=== PATIENT | female | born 1990 | race Caucasian/White ===

== ENCOUNTER 2016-11-09 21:59 | Emergency (ER) | payer BC, OTHER ==
[~2016-11-09] VITALS: Ht 172.7 cm; Wt 59.8 kg
[~2016-11-09 21:59] MED LIST: ALBUAER2 INH; CLTP PO; MULT-506 PO
[2016-11-09 22:03] VITALS: Ht 172.7 cm; Wt 59.8 kg
[2016-11-09] MEDS ORDERED: DiphenhydrAMINE HCL 50 MG/ML VIAL IV STA (23:08)
[2016-11-09] MEDS ORDERED: ONDANSETRON INJ 2 MG/ML 2 ML VIAL IV STA (23:08)
[2016-11-09] MEDS ORDERED: RANITIDINE HCL 50 MG/100 ML D5W IV STA (23:08)
[2016-11-09] MEDS ORDERED: DEXAMETHASONE SOD INJ 10 MG/ML VIAL IV ONE (23:15)
[2016-11-09 23:20] VITALS: O2SAT 100
[2016-11-10] MEDS ORDERED: PRED50TA PO (00:08)
[2016-11-10] MEDS ORDERED: NITR-5 PO (00:08)
[2016-11-10] MEDS ORDERED: NITROFURANTOIN MONOHYDRATE 100 MG CAP PO ONE (00:15)
[2016-11-10] MEDS ORDERED: EPINEPHRINE ADULT AUTO-INJECT 0.3 MG SYR IM ONE (00:15)
[2016-11-10] MEDS ORDERED: SPIR50TA2 PO (00:22)
[2016-11-10] MEDS ORDERED: FERR1TAB23 PO (00:23)
[2016-11-10 00:49] VITALS: BP 130/72; PULSE 105; TEMP 37.6; O2SAT 100
--- NOTE | 2016-11-10 02:10 | EMERGENCY ROOM VISIT NOTE ---
History First contact with patient: 23:04 Chief Complaint: ALLERGIC REACTION Stated Complaint: FEVER,SORE,MUSCLES,JOINT PAIN,BLOTCJY SKIN Nursing Triage Summary: Patient ambulatory to triage, states "I got a UTI and put on bactrim and I think I am having an allergic reaction. I have a fever, my face is really hot, my face is a little blotchy, my eyes feel hot and I have a lot of pain in my lower back." History of Present Illness The patient is a 26 year old female who presents to the Emergency Room with complaints of allergic reaction after taking a dose of Bactrim that was prescribed to her from urgent care yesterday. Patient complains of itching and facial swelling. Patient denies chest pain, dyspnea, abdominal pain, throat tightness, tongue swelling, feeling of impending doom. Review of Systems See HPI for pertinent positives & negatives. A total of 10 systems reviewed and were otherwise negative. Past Medical/Surgical History None Social History Smoking Status: Never Smoker Smokeless Tobacco Use: No Alcohol Use: occasionally Drug Use: none Current/Historical Medications Scheduled Ferrous Sulfate (Iron), 325 MG PO DAILY Nitrofurantoin Monohyd Macrocr (Macrobid), 100 MG PO BID Prednisone (Prednisone), 50 MG PO DAILY Spironolactone (Aldactone), 50 MG PO DAILY Allergies Coded Allergies: Sulfamethoxazole w/Trimethoprim (Verified Allergy, Unknown, rash, 11/10/16) Physical Exam Vital Signs Date Time Temp Pulse Resp B/P Pulse Ox O2 Delivery O2 Flow Rate FiO2 11/10/16 00:49 37.6 105 18 130/72 100 Room Air 11/09/16 23:25 110 11/09/16 23:20 100 Room Air 11/09/16 23:20 100 Room Air 11/09/16 23:20 110 22 124/72 100 Room Air 11/09/16 22:03 37.4 123 18 132/82 99 Room Air 11/09/16 22:03 99 Room Air Pain Rating (0-10): 2.0 Physical Exam VITALS: Vitals are noted on the nurse's note and reviewed by myself. Vital signs stable. GENERAL: Pleasant female speaking in full sentences, in no acute distress, nondiaphoretic, well-developed well-nourished. SKIN: The skin was without rashes, erythema, edema, or bruising. There is no tenting of the skin. Capillary reflex less than 2 seconds. HEAD: Normocephalic atraumatic. EARS: External auditory canals clear, tympanic membranes pearly magana without erythema or effusion bilaterally. EYES: Pupils equal round and reactive to light and accommodation. Conjunctivae without injection, sclerae without icterus. Extraocular movements intact. NOSE: Patent, turbinates without inflammation or discharge. MOUTH: Mucous membranes moist. Pharynx without erythema or exudate. Uvula midline. Airway patent. Tongue does not deviate. NECK: Supple without nuchal rigidity. No lymphadenopathy. No thyromegaly. Cervical spine is nontender. No JVD. HEART: Regular rate and rhythm without murmurs gallops or rubs. LUNGS: Clear to auscultation bilaterally without wheezes, rales or rhonchi. No dullness to percussion. No retractions or accessory muscle use. ABDOMEN: Positive bowel sounds x 4. Normal tympanic percussion. Soft, nontender, without masses or organomegaly. Rondon sign negative. No guarding or rebound tenderness. No CVA tenderness MUSCULOSKELETAL: No muscle atrophy, erythema, or edema noted. NEURO: Patient was alert and oriented to person place and time. Normal sensation to light and sharp touch. No focal neurological deficits. Medical Decision & Procedures Medications Administered Medications (Trade) Dose Ordered Sig/Darren Route Start Time Stop Time Status Last Admin Dose Admin Dexamethasone Sodium Phosphate (Decadron Inj) 10 mg NOW ONCE IV 11/09/16 23:15 11/09/16 23:16 DC 11/09/16 23:27 10 MG Ranitidine HCl (zANTac IV) 50 mg NOW STAT IV 11/09/16 23:08 11/09/16 23:09 DC 11/09/16 23:27 50 MG Ondansetron HCl (Zofran Inj) 4 mg NOW STAT IV 11/09/16 23:08 11/09/16 23:09 DC 11/09/16 23:26 4 MG Diphenhydramine HCl (Benadryl Inj) 50 mg NOW STAT IV 11/09/16 23:08 11/09/16 23:09 DC 11/09/16 23:26 50 MG Epinephrine (Epipen) 0.3 mg NOW ONCE IM 11/10/16 00:15 11/10/16 00:16 DC 11/10/16 00:43 0.3 MG Nitrofurantoin Macrocrystals (Macrobid Cap) 200 mg ONE ONCE PO 11/10/16 00:15 11/10/16 00:16 DC 11/10/16 00:43 200 MG ED Course Prior records/ancillary studies reviewed. Triage Nursing notes reviewed. The patient's history was concerning for possible allergic reaction. Differential diagnosis: Etiologies such as allergic reaction, anaphylaxis, urticaria, Diane-Haris syndrome, toxic epidermal necrolysis, erythema multiforme, cellulitis, as well as others were entertained. Physical examination: As above. ER treatment provided: Continuous cardiac monitoring Benadryl 50 mg IV Pepcid 20 mg IV Decadron 10 mg IV Home pack Macrobid On reassessment the patient felt better. Diagnostic interpretation by me: Deferred It appears the patient had an allergic reaction. Patient was advised not to take sulfa in the future and was switched over to Macrobid. Bactrim as marked as an allergy. The above treatment did well to reverse the symptoms. After prolonged monitoring and frequent reassessments the patient did very well and symptoms resolved. The patient was counseled on the spectrum of this disease process and told to avoid potential triggers. I gave my usual and customary discussion regarding this issue. Patient felt much better and requested to leave. She had no CVA tenderness on exam. She is well-appearing. She is advised to return to the ER immediately for back pain, fevers, vomiting, allergic reaction symptoms, worsening signs or symptoms or as needed. By the evaluation outlined above emergent etiologies such as recurring anaphylaxis, anaphylatic shock, airway compromise, Diane-Haris syndrome, toxic epidermal necrolysis, erythema multiforme, infectious etiologies, as well as others were deemed relatively unlikely. The pt informed about the findings as listed above. All questions were answered and pleased with the treatment. Return instructions were outlined and the patient was discharged in stable condition. Outpatient prescription management: EpiPen prednisone Macrobid Referral: The patient was referred back to primary care physician for follow-up in 2-3 days for a recheck of the current condition. Medical Decision As above Impression Primary Impression: Adverse reaction to drug Additional Impression: Allergic reaction Departure Information Dispostion Home / Self-Care Condition GOOD Prescriptions Prednisone (Prednisone) 50 Mg Tab 50 MG PO DAILY for 4 Days, #4 TAB Prov: Eunice Carballo .ROBERTO 11/10/16 Nitrofurantoin Monohyd Macrocr (Macrobid) 100 Mg Cap 100 MG PO BID for 6 Days, #12 CAP Prov: Eunice Carballo PA-C 11/10/16 Referrals No Doctor, Assigned (PCP) Forms HOME CARE DOCUMENTATION FORM, IMPORTANT VISIT INFORMATION Patient Instructions [facility], ED Allergic Reaction General Other Additional Instructions Do not take Bactrim or sulfa drugs in the future. Junior this as an allergy. Macrobid(macrodantin) 100mg: Take one pill twice daily for 7 days for your urine infection. All antibiotics can cause diarrhea. If this occurs and you feel worse or it does not resolve in 1-2 days follow up with your doctor or return to the Emergency Department as this could be signs of serious underlying problems. Any medication can cause an allergic reaction, stop the pills immediately and return to the ER for rash, hives, breathing difficulties, or swelling. DO NOT drive, drink alcohol, operate machinery, or perform dangerous activities today. You were given medications in the ER that can affect your ability to safely function or operate a vehicle. Epi-Pen: Use one injection as instructed for severe allergic reactions associated with shortness of breath, difficulty breathing, or throat or tongue swelling. If you use this injection call 911 or proceed immediately to the nearest Emergency Room. Prednisone 50mg: Once daily until the prescription is finished. It is best to take this earlier in the day as some patients note occasional difficulty falling asleep when taken in the late evening. Diphenhydramine(Benadryl) 25mg: use 25 to 50 mg every six hours for swelling, itching, or hives. This medication is sedating and will cause drowsiness. Avoid alcohol, operating machinery or dangerous equipment, working on ladders or roofs, DRIVING, or situations where being under the influence may be dangerous. Zantac 75: Take two pills twice a day along with Benadryl as needed for swelling , itching, or hives. Most people know this for its affect on the stomach, but it also acts similar to, but less potent than Benadryl for allergic reactions. Both the Benadryl and the Zantac are available [id number]. Continue current medications. Return to the emergency department for worsening of your rash, swelling of your face, lips, tongue, or throat, difficulty breathing, vomiting, or as needed. Follow-up with your primary care physician in 2 to 3 days for a recheck of your current condition. Problem Qualifiers Primary Impression: Adverse reaction to drug Encounter type: initial encounter Qualified Codes: T88.7XXA - Unspecified adverse effect of drug or medicament, initial encounter
== END 2016-11-10 00:54 | disposition home or self-care (01) ==
LOC: C.EDB 22:01
DX: T88.7XXA Unspecified adverse effect of drug or medicament, initial encounter (principal); Z79.899 Other long term (current) drug therapy; X58.XXXA Exposure to other specified factors, initial encounter